=== PATIENT | female | born 1985 | race Caucasian/White ===

== ENCOUNTER 2024-10-21 11:42 | Emergency (ER) | payer OTHER ==
[~2024-10-21] VITALS: Ht 154.9 cm; Wt 61.2 kg
[2024-10-21 11:50] VITALS: O2SAT 100
[2024-10-21 12:29] LABS: BASOPHILS % 0.5 % (0.0-2.0); EOSINOPHILS % 1.1 % (0.0-5.0); HEMATOCRIT. 41.2 % (36.0-48.0); HEMOGLOBIN. 13.2 g/dL (12.0-16.0); LYMPHOCYTES % 25.4 % (20.0-50.0); MEAN CORPUSCULAR HEMOGLOBIN 28.3 pg (28.0-32.0); MEAN CORPUSCULAR VOLUME 88.3 fL (81.0-99.0); MEAN PLATELET VOLUME 7.6 fl (7.4-10.4); MONOCYTES % 5.2 % (2.0-8.0); NEUTROPHILS % 67.8 % (40.0-76.0); PLATELET 370 x1000/uL (130-400); RED BLOOD CELL COUNT 4.66 mill/uL (4.2-5.4); RED CELL DISTRIBUTION WIDTH 14.2 % (11.6-14.6); WHITE BLOOD COUNT 8.5 x1000/uL (4.5-11.0)
[2024-10-21 12:37] LABS: CARBON DIOXIDE 25 mEq/L (21-32); CHLORIDE 105 mEq/L (98-107); POTASSIUM 3.6 mEq/L (3.5-5.1); SODIUM 138 mEq/L (136-145)
[2024-10-21 12:38] LABS: CALCIUM 9.4 mg/dL (8.7-10.4)
[2024-10-21 12:41] LABS: HCG SCREEN POSITIVE
[2024-10-21 12:43] LABS: CREATININE 0.5 mg/dL (0.6-1.0); GLUCOSE 125 mg/dL (70-105); UREA NITROGEN BLOOD 7 mg/dL (9-23)
[2024-10-21 13:28] LABS: CLARITY URINE CLOUDY (CLEAR); COLOR URINE YELLOW (YELLOW); GLUCOSE URINE NEGATIVE (NEGATIVE); KETONES URINE NEGATIVE (NEGATIVE); LEUKOCYTE ESTERASE URINE TRACE (NEGATIVE); NITRITE URINE NEGATIVE (NEGATIVE); OCCULT BLOOD URINE 3+ (NEGATIVE); PROTEIN URINE TRACE (NEGATIVE); SPECIFIC GRAVITY URINE 1.014 (1.005-1.030); UROBILINOGEN URINE 0.2 E.U./dL (0.2-1.0)
[2024-10-21 13:41] LABS: BACTERIA URINE 2+; RBC URINE TNTC /hpf (0-2); SQUAMOUS EPITHELIAL CELL URINE 3+ /lpf (RARE/1+); WBC URINE 0-2 /hpf (0-2); YEAST URINE NONE SEEN
[2024-10-21 14:17] LABS: *AMPHETAMINES SCREEN URINE NEGATIVE (NEGATIVE); *BARBITURATES SCREEN URINE NEGATIVE (NEGATIVE); *BENZODIAZEPINES SCREEN URINE NEGATIVE (NEGATIVE); *COCAINE SCREEN URINE NEGATIVE (NEGATIVE); CANNABINOID URINE SCREEN NEGATIVE (NEGATIVE); METHADONE URINE SCREEN NEGATIVE (NEGATIVE); OPIATES URINE SCREEN NEGATIVE (NEGATIVE); PHENCYCLIDINE URINE SCREEN NEGATIVE (NEGATIVE)
[2024-10-21 14:18] LABS: ECSTASY MDMA SCREEN URINE NEGATIVE (NEGATIVE)
[2024-10-21] MEDS ORDERED: CEFP100T8 MT (15:52)
[2024-10-21 16:17] VITALS: BP 120/77; PULSE 87; RESP 16; TEMP 36.7; O2SAT 100
== END 2024-10-21 16:17 | disposition home or self-care (01) ==
LOC: ER 11:42
DX: O20.0 Threatened abortion (principal); Z3A.01 Less than 8 weeks gestation of pregnancy; O23.41 Unspecified infection of urinary tract in pregnancy, first trimester; N39.0 Urinary tract infection, site not specified
CPT/HCPCS: 36415; 76801; 80048; 80305; 81003; 81025; 84702; 84703; 85025; 86850; 86900; 99284

== ENCOUNTER 2024-10-22 11:54 | Emergency (ER) | payer OTHER ==
[~2024-10-22] VITALS: Ht 157.5 cm; Wt 80.0 kg
[~2024-10-22 11:54] MED LIST: CEFP100T8 MT
[2024-10-22 12:25] VITALS: O2SAT 100
[2024-10-22 12:45] LABS: BASOPHILS % 0.8 % (0.0-2.0); EOSINOPHILS % 0.7 % (0.0-5.0); HEMOGLOBIN. 13.7 g/dL (12.0-16.0); LYMPHOCYTES % 20.4 % (20.0-50.0); MEAN CORPUSCULAR HEMOGLOBIN 28.7 pg (28.0-32.0); MEAN CORPUSCULAR HGB CONC 33.3 g/dL (31.0-37.0); MEAN CORPUSCULAR VOLUME 86.2 fL (81.0-99.0); MEAN PLATELET VOLUME 7.7 fl (7.4-10.4); MONOCYTES % 5.5 % (2.0-8.0); NEUTROPHILS % 72.6 % (40.0-76.0); PLATELET 369 x1000/uL (130-400); RED BLOOD CELL COUNT 4.75 mill/uL (4.2-5.4); RED CELL DISTRIBUTION WIDTH 14.4 % (11.6-14.6); WHITE BLOOD COUNT 10.2 x1000/uL (4.5-11.0)
[2024-10-22 12:54] LABS: CHLORIDE 100 mEq/L (98-107); POTASSIUM 4.4 mEq/L (3.5-5.1); SODIUM 138 mEq/L (136-145)
[2024-10-22 12:55] LABS: CARBON DIOXIDE 28 mEq/L (21-32)
[2024-10-22 12:56] LABS: CALCIUM 10.4 mg/dL (8.7-10.4)
[2024-10-22 12:58] LABS: HCG SCREEN POSITIVE; PROTHROMBIN TIME 10.3 sec (9.6-11.0)
[2024-10-22 13:01] LABS: CREATININE 0.6 mg/dL (0.6-1.0); GLUCOSE 102 mg/dL (70-105); UREA NITROGEN BLOOD 7 mg/dL (9-23)
[2024-10-22 13:27] LABS: B-HCG QUANTITATIVE 13079 mIU/mL (<6)
[2024-10-22 15:09] VITALS: BP 114/52; PULSE 64; RESP 12; TEMP 37.1; O2SAT 99
== END 2024-10-22 15:40 | disposition home or self-care (01) ==
LOC: ER 11:54
DX: O20.9 Hemorrhage in early pregnancy, unspecified (principal); O20.0 Threatened abortion; Z3A.01 Less than 8 weeks gestation of pregnancy
CPT/HCPCS: 36415; 76801; 80048; 81025; 84702; 84703; 85025; 86850; 86900; 99284